=== PATIENT | female | born 1945 | race Caucasian/White ===

== ENCOUNTER 2017-09-16 01:13 | Emergency (ER) | payer BC ==
[~2017-09-16] VITALS: Ht 167.6 cm; Wt 88.0 kg
[2017-09-16 01:20] VITALS: BP 149/74; PULSE 64; RESP 18; TEMP 98.1; O2SAT 98
[2017-09-16] MEDS ORDERED: LACT1CAP19 (02:32)
[2017-09-16] MEDS ORDERED: SYNT88TA PO (02:32)
[2017-09-16] MEDS ORDERED: COUM5TAB PO (02:32)
--- NOTE | 2017-09-16 03:03 | PD ---
HPI Chief Complaint: Fall Time Seen by Provider: 02:16 Travel History International Travel<30 days: No Contact w/Intl Traveler<30days: No Traveled to known affect area: No History of Present Illness HPI The patient is a 72 year old female who presents to the [facility] emergency department with a history of unloading cement blocks from her car and then she turned and tripped over one on the ground at 1PM yesterday. She landed on her right knee, right elbow, and hit the right side of her head. She denies having any LOC. She reports that she went to lie down afterwards. She awoke around dusk with increased pain in the right arm. 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 She is visiting from [place] and is a snowbird. She is chronically anticoagulated on Coumadin. She last had her INR checked in May 2017. The patient reports that she has a mild abrasion to the right knee. She reports that she has been able to weight-bear without any pain. The patient reports that her right elbow has decreased range of motion and pain along the radial aspect with swelling. She denies having any numbness or tingling to her hand. She denies having any loss of range of motion of her fingers or her wrist. The patient denies having any pain in her shoulder. The patient reports that she did develop some swelling and an area of ecchymosis around the right eye, baptist area. She denies having any vision changes. She denies having any neck pain, paresthesias, or weakness to her extremities. On review of systems otherwise, she denies having any known recent fevers, cough or congestion, neck pain, chest pain, shortness of breath, abdominal pain, vomiting, urinary symptoms, or neurologic symptoms. The patient reports having a chronic history of diarrhea intermittently related to irritable bowel syndrome. [facility] Past Medical History Narrative Medical The patient's past medical history is significant for DVT, PE- she is anticoagulated on Coumadin, history of hypothyroid disorder, history of irritable bowel syndrome. Diminished Hearing: No Deep Vein Thrombosis: Yes (clotting disorder) Gastrointestinal Disorders: Yes (IBS) Respiratory: Yes (PE x1) Thyroid Disease: Yes (hypothyroidism) Tetanus Vaccination: > 5 Years Influenza Vaccination: No ?: Not LMP: menapause Past Surgical History Surgical History: No Previous Surgery Social History Alcohol Use: No Tobacco Use: No Substance Use: No Allergies-Medications (Allergen,Severity, Reaction): Coded Allergies: adhesive (Verified Allergy, Severe, 09/16/17) rash Reported Meds & Prescriptions Reported Meds & Active Scripts Active Reported Probiotic (Lactobacillus Combination No.4) 3 Billion Cell Capsule Synthroid (Levothyroxine Sodium) 88 Mcg Tab 88 Mcg PO DAILY Coumadin (Warfarin) 5 Mg Tab 5 Mg PO DAILY Review of Systems Except as stated in HPI: all other systems reviewed are Neg General / Constitutional: No: Fever Eyes: No: Visual changes HENT: Positive: Headaches, No: Neck Stiffness, Neck Pain Cardiovascular: No: Chest Pain or Discomfort Respiratory: No: Shortness of Breath Gastrointestinal: Positive: Diarrhea, No: Nausea, Vomiting, Abdominal Pain Genitourinary: No: Dysuria Musculoskeletal: Positive: Myalgias, Arthralgias, Limited ROM, Edema, Pain Skin: No Rash Neurologic: No: Weakness, Focal Abnormalities, Change in Mentation, Slurred Speech, Sensory Disturbance Psychiatric: No: Depression Endocrine: No: Polydipsia Hematologic/Lymphatic: No: Easy Bruising Physical Exam Narrative General: The patient is a well-developed well-nourished female in no acute distress. Head and Neck exam: Head is normocephalic, with evidence of trauma to the right side of the baptist, right outer edge of her right eye. There is ecchymosis. There is no tenderness on palpation. No increased facial bone motility or tenderness on palpation of her facial bones and orbital ridges. Eyes: EOMI, pupils are equal round and reactive to light. Nose: Midline septum with pink mucous membranes Mouth: Dentition unremarkable. Moist mucus membranes. Posterior oropharynx is not erythematous. No tonsillar hypertrophy. Uvula midline. Airway patent. Neck: No palpable lymphadenopathy. No nuchal rigidity. No thyromegaly. Cardiovascular: Regular rate and rhythm without murmurs, gallops, or rubs. No pulse deficit to the extremities on simultaneous auscultation and palpation of her radial artery. Lungs: Clear to auscultation bilaterally. No wheezes, rhonchi, or rales. Abdomen: Soft, without tenderness to palpation in all 4 quadrants of the abdomen. No guarding, rebound, or rigidity. Normal bowel sounds are audible. No tenderness on palpation of McBurney's point. Negative Barrera sign Extremities: No clubbing, cyanosis, or edema. 2+ pulses in all 4 extremities. The area of interest is the right knee and right elbow. The patient's right elbow has decreased range of motion. The patient holds her right elbow flexed and over her abdomen. The patient reports having severe pain with any attempts at extension of her right elbow. The patient reports that the pain is worse on palpation along the proximal aspect of the radius. The patient has full range of motion of her wrist, hand, and fingers. The patient has intact sensation over all fingers. She has less than 3 second capillary refill. The patient has soft compartments. On examination of the right knee, the patient is noted to have along the anterior aspect of the lateral aspect of the right knee a small abrasion that is superficial. The patient has no ligament laxity. No crepitus or step-off. The patient has no pain with range of motion, weightbearing, or walking. Back: No spinous process tenderness to palpation. No costovertebral angle tenderness to palpation. Neurologic Exam: Cranial nerves 2-12 were intact on exam. Strength is 5/5 in all 4 extremities. No sensory deficits noted. Skin Exam: No rash noted. Intact skin that is warm and dry. Data Data Last Documented VS Vital Signs Date Time Temp Pulse Resp B/P (MAP) Pulse Ox O2 Delivery O2 Flow Rate FiO2 09/16/17 01:20 98.1 64 18 149/74 (99) 98 Orders Orders Complete Blood Count With Diff (09/16/17 02:49) Basic Metabolic Panel (Bmp) (09/16/17 02:49) Prothrombin Time / Inr (Pt) (09/16/17 02:49) Act Partial Throm Time (Ptt) (09/16/17 02:49) Ct Brain W/O Iv Contrast(Rout) (09/16/17 02:49) Ct Cerv Spine W/O Contrast (09/16/17 ) Iv Access Insert/Monitor (09/16/17 02:49) Ecg Monitoring (09/16/17 02:49) Oximetry (09/16/17 02:49) Elbow, Complete (4 Vws) (09/16/17 03:04) Ice/Cold Pack (09/16/17 03:04) Splint Or Brace Apply/Monitor (09/16/17 04:07) Acetamin-Hydrocod 325-5 Mg ([place] 5-325 (09/16/17 05:00) Labs Laboratory Tests Test 09/16/17 03:15 White Blood Count 9.4 TH/MM3 Red Blood Count 4.93 MIL/MM3 Hemoglobin 14.4 GM/DL Hematocrit 43.2 % Mean Corpuscular Volume 87.6 FL Mean Corpuscular Hemoglobin 29.3 PG Mean Corpuscular Hemoglobin Concent 33.5 % Red Cell Distribution Width 13.9 % Platelet Count 215 TH/MM3 Mean Platelet Volume 8.3 FL Neutrophils (%) (Auto) 65.9 % Lymphocytes (%) (Auto) 19.9 % Monocytes (%) (Auto) 11.6 % Eosinophils (%) (Auto) 2.0 % Basophils (%) (Auto) 0.6 % Neutrophils # (Auto) 6.2 TH/MM3 Lymphocytes # (Auto) 1.9 TH/MM3 Monocytes # (Auto) 1.1 TH/MM3 Eosinophils # (Auto) 0.2 TH/MM3 Basophils # (Auto) 0.1 TH/MM3 CBC Comment DIFF FINAL Differential Comment Prothrombin Time 36.6 SEC Prothromb Time International Ratio 3.6 RATIO Activated Partial Thromboplast Time 46.3 SEC Blood Urea Nitrogen 17 MG/DL Creatinine 0.92 MG/DL Random Glucose 89 MG/DL Calcium Level 9.0 MG/DL Sodium Level 141 MEQ/L Potassium Level 4.0 MEQ/L Chloride Level 107 MEQ/L Carbon Dioxide Level 27.8 MEQ/L Anion Gap 6 MEQ/L Estimat Glomerular Filtration Rate 60 ML/MIN MDM Medical Decision Making Medical Screen Exam Complete: Yes Emergency Medical Condition: Yes Medical Record Reviewed: Yes Differential Diagnosis Intracranial hemorrhage, versus cervical spine injury, versus right elbow fracture, versus dislocation, versus contusions and abrasion Narrative Course During the course of the patient's emergency department visit, the patient's history, examination, and differential diagnosis were reviewed with the patient. The patient was placed on a front desk monitor with oximetry and frequent blood pressure monitoring. The patient had IV access obtained and blood work sent for analysis. The patient was initially provided hydrocodone for pain The patient's laboratory studies were reviewed and remarkable for a white count of 9.4, hemoglobin 14.4, platelets 215 with 11.6 monos, basic metabolic profile is within normal limits, PT 36.6, INR 3.6, PTT 46.3. The patient is instructed to hold her Coumadin for 2 days and recheck her INR on Sunday. The patient will likely be started back on a lower dose of her Coumadin. The patient is given information regarding the [facility] for follow-up for her primary care while she is local. Radiology studies were reviewed and remarkable for a CT scan of the brain that showed no acute abnormality, CT scan of the C-spine showed moderate degenerative disc disease, no other acute abnormality, x-ray of the right elbow shows according to the reading radiologist, Dr. Gustafson a mildly displaced radial head fracture with questionable evulsion fracture of the lateral epicondyle, positive joint effusion. I spoke to Dr. Frye regarding this patient's case at approximately 4:48 AM. The patient's case including history, pertinent physical examination findings, and laboratory studies were discussed with . He did review the patient' s imaging and reported that the patient's fracture was actually nondisplaced. He explained that the patient could follow-up as an outpatient and would likely not require surgical intervention. The patient was placed in a long posterior arm splint. The patient is resting comfortably and feels better, is alert and in no distress. The patient's results and examination findings were discussed with the patient. The repeat examination is unremarkable and benign. The history, exam, diagnostic testing, and current condition do not suggest any significant pathology to warrant further testing, continued ED treatment, admission, or surgical evaluation at this point. The vital signs have been stable. The patient does not have uncontrollable pain, intractable vomiting, or other significant symptoms. The patient's condition is stable and appropriate for discharge. The patient will pursue further outpatient evaluation with a primary care physician or other designated or consulting physician as indicated in the discharge instructions. The patient expressed understanding and was agreeable with this plan. Diagnosis Primary Impression: Radial head fracture, closed Qualified Codes: S52.121A - Displaced fracture of head of right radius, initial encounter for closed fracture Additional Impression: Elevated INR Referrals: Brant rFye MD call for appointment [facility] 2 days Patient Instructions: Elbow Fracture (ED), Elevated INR (ED), General Instructions Additional Instructions: The patient is instructed to hold her Coumadin for 2 days and recheck her INR on Sunday. The patient will likely be started back on a lower dose of her Coumadin. The patient is given information regarding the [facility] for follow-up for her primary care while she is local. Med/Other Pt SpecificInfo: Prescription(s) given Scripts Hydrocodone-Acetaminophen (Hydrocodone-Acetaminophen) 5-325 mg Tab 1 TAB PO Q6H Y for PAIN, #12 TAB 0 Refills Prov: Rosio Carlson MD 09/16/17 Disposition: 01 DISCHARGE HOME Condition: Stable Rosio Carlson MD Sep 16, 2017 03:03
[2017-09-16 03:29] LABS: AUTOMATED NEUTROPHIL # 6.2 TH/MM3 (1.8-7.7); BASOPHIL # 0.1 TH/MM3 (0-0.2); BASOPHIL % 0.6 % (0.0-2.0); EOSINOPHIL # 0.2 TH/MM3 (0-0.4); HEMATOCRIT 43.2 % (35.0-46.0); HEMOGLOBIN 14.4 GM/DL (11.6-15.3); LYMPH % 19.9 % (9.0-44.0); LYMPHOCYTE # 1.9 TH/MM3 (1.0-4.8); MEAN CELL VOLUME 87.6 FL (80.0-100.0); MEAN CORPUSCULAR HEMOGLOBIN 29.3 PG (27.0-34.0); MEAN CORPUSCULAR HGB CONC 33.5 % (32.0-36.0); MEAN PLATELET VOLUME 8.3 FL (7.0-11.0); MONO % 11.6 % (0.0-8.0); MONOCYTE # 1.1 TH/MM3 (0-0.9); NEUT % 65.9 % (16.0-70.0); PLATELET COUNT 215 TH/MM3 (150-450); RED BLOOD COUNT 4.93 MIL/MM3 (4.00-5.30); RED CELL DISTRIBUTION WIDTH 13.9 % (11.6-17.2); WHITE BLOOD COUNT 9.4 TH/MM3 (4.0-11.0)
--- NOTE | 2017-09-16 03:38 | RADRPT ---
EXAM DATE/TIME: 09/16/2017 03:18 [facility] COMPARISON: No previous studies available for comparison. INDICATIONS : Trauma. Fell and hit right side of head and face. RADIATION DOSE: 32.14 CTDIvol (mGy) MEDICAL HISTORY : Deep venous thrombosis. SURGICAL HISTORY : None. ENCOUNTER: Initial ACUITY: 1 day PAIN SCALE: 1/10 LOCATION: Right cranial TECHNIQUE: Multiple contiguous axial images were obtained of the head. Using automated exposure control and adj ustment of the mA and/or kV according to patient size, radiation dose was kept as low as reasonably a chievable to obtain optimal diagnostic quality images. DICOM format image data is available electro nically for review and comparison. FINDINGS: CEREBRUM: The ventricles are normal for age. No evidence of midline shift, mass lesion, hemorrhage or acute in farction. No extra-axial fluid collections are seen. POSTERIOR FOSSA: The cerebellum and brainstem are intact. The 4th ventricle is midline. The cerebellopontine angle i s unremarkable. EXTRACRANIAL: The visualized portion of the orbits is intact. SKULL: The calvaria is intact. No evidence of skull fracture. CONCLUSION: Normal examination for a patient of this age. Simba Gustafson MD on September 16, 2017 at 3:35 Board Certified Radiologist. This report was verified electronically.
[2017-09-16 03:40] LABS: INTERNATIONAL NORMALIZED RATIO 3.6 RATIO; PROTHROMBIN TIME - PATIENT 36.6 SEC (9.8-11.6)
--- NOTE | 2017-09-16 03:50 | RADRPT ---
EXAM DATE/TIME: 09/16/2017 03:18 [facility] COMPARISON: No previous studies available for comparison. INDICATIONS : Trauma. Fell and hit right side of head. RADIATION DOSE: 19.73 CTDIvol (mGy) MEDICAL HISTORY : Deep venous thrombosis. SURGICAL HISTORY : None. ENCOUNTER: Initial ACUITY: 1 day PAIN SCALE: 1/10 LOCATION: neck TECHNIQUE: Volumetric scanning of the cervical spine was performed. Multiplanar reconstructions in the sagittal, coronal and oblique axial planes were performed. Using automated exposure control and adjustment o f the mA and/or kV according to patient size, radiation dose was kept as low as reasonably achievable to obtain optimal diagnostic quality images. DICOM format image data is available electronically f or review and comparison. FINDINGS: No acute fracture or subluxation. No prevertebral soft tissue swelling. Moderate degenerative disc di sease and facet arthropathy. Foraminal stenosis present bilaterally at C5-6-7. CONCLUSION: 1. Moderate degenerative disc disease. No acute bony abnormality. Simba Gustafson MD on September 16, 2017 at 3:42 Board Certified Radiologist. This report was verified electronically.
[2017-09-16 04:05] LABS: BICARBONATE 27.8 MEQ/L (21.0-32.0); CREATININE 0.92 MG/DL (0.50-1.00)
--- NOTE | 2017-09-16 04:08 | RADRPT ---
EXAM DATE/TIME: 09/16/2017 03:28 [facility] COMPARISON: No previous studies available for comparison. INDICATIONS : Trauma. MEDICAL HISTORY : Deep vein thrombosis. SURGICAL HISTORY : None. ENCOUNTER: Initial ACUITY: 1 day PAIN SCORE: 10/10 LOCATION: Right Elbow. FINDINGS: There is a mildly displaced radial head fracture. Positive joint effusion. Ossifications adjacent to the lateral epicondyles possibly with a small avulsion injury. CONCLUSION: 1. Mildly displaced radial head fracture. Questionable avulsion fracture lateral epicondyle. Positive joint effusion. Simba Gustafson MD on September 16, 2017 at 4:05 Board Certified Radiologist. This report was verified electronically.
[2017-09-16] MEDS ORDERED: ACETAMINOPHEN/HYDROcodone 325 MG/5 MG TAB PO ONE (05:00)
[2017-09-16] MEDS ORDERED: HYDR-3516 PO (05:15)
[2017-09-16 06:11] VITALS: BP 140/72
== END 2017-09-16 06:13 | disposition home or self-care (01) ==
LOC: NEPC 01:13
DX: S52.121A Displaced fracture of head of right radius, initial encounter for closed fracture (principal); S80.211A Abrasion, right knee, initial encounter; S00.11XA Contusion of right eyelid and periocular area, initial encounter; R79.1 Abnormal coagulation profile; M50.322 Other cervical disc degeneration at C5-C6 level; M50.323 Other cervical disc degeneration at C6-C7 level; R19.7 Diarrhea, unspecified; E03.9 Hypothyroidism, unspecified; W01.0XXA Fall on same level from slipping, tripping and stumbling without subsequent striking against object, initial encounter
CPT/HCPCS: 29105; 70450; 72125; 73080; 80048; 85025; 85610; 85730

== ENCOUNTER 2017-09-18 12:51 | Emergency (ER) | payer SELFPAY ==
[~2017-09-18] VITALS: Ht 167.6 cm; Wt 86.4 kg
[~2017-09-18 12:51] MED LIST: COUM5TAB PO; HYDR-3516 PO; LACT1CAP19; SYNT88TA PO
[2017-09-18 12:55] VITALS: BP 146/73; PULSE 74; RESP 18; TEMP 98.5; O2SAT 99
--- NOTE | 2017-09-18 14:22 | PD ---
HPI Chief Complaint: Injury Time Seen by Provider: 14:10 Travel History International Travel<30 days: No Contact w/Intl Traveler<30days: No Traveled to known affect area: No History of Present Illness HPI 72-year-old female presents to the emergency department requesting for her right upper arm splint to be redone because it was too tight and causing swelling and numbness in her right hand. She was seen here on September 16 and diagnosed with a radial head fracture. She did loosen the splint around her hand and wrist. Denies paresthesias, loss of sensation at this time. Denies swelling of the hand at this time. Denies fever, vomiting. Has a follow-up appointment with orthopedic on Sunday. Does not have a primary care provider in this area, as she has a snowbird, and her primary care is back home. Takes Coumadin for history of blood clots. Allergies to adhesives. Has no other medical complaints. No other modifying factors or associated signs and symptoms. PFSH Past Medical History Diminished Hearing: No Deep Vein Thrombosis: Yes (clotting disorder) Gastrointestinal Disorders: Yes (IBS) Respiratory: Yes (PE x1) Thyroid Disease: Yes (hypothyroidism) Social History Alcohol Use: No Tobacco Use: No Substance Use: No Allergies-Medications (Allergen,Severity, Reaction): Coded Allergies: adhesive (Verified Allergy, Severe, 09/18/17) rash Reported Meds & Prescriptions Reported Meds & Active Scripts Active Hydrocodone-Acetaminophen 5-325 mg Tab 1 Tab PO Q6H PRN Reported Probiotic (Lactobacillus Combination No.4) 3 Billion Cell Capsule Synthroid (Levothyroxine Sodium) 88 Mcg Tab 88 Mcg PO DAILY Coumadin (Warfarin) 5 Mg Tab 5 Mg PO DAILY Review of Systems Except as stated in HPI: all other systems reviewed are Neg Physical Exam Narrative GENERAL: Well-nourished, well-developed female patient, in no acute distress SKIN: Warm and dry. HEAD: Atraumatic. Normocephalic. EYES: Pupils equal and round. No scleral icterus. No injection or drainage. Right raccoon eye noted. ENT: Mucosa pink and moist. Airway patent. NECK: Trachea midline. CARDIOVASCULAR: Regular rate. RESPIRATORY: No accessory muscle use. GASTROINTESTINAL: Rounded. MUSCULOSKELETAL: Right upper extremity in soft splint; loosened around the hand and wrist; 2+ radial pulse; fingers with full range of motion and sensory intact and are pink and warm. No obvious deformities. No clubbing. No cyanosis. No edema. NEUROLOGICAL: Awake and alert. Oriented 3. No obvious cranial nerve deficits. Motor grossly within normal limits. Normal speech. PSYCHIATRIC: Appropriate mood and affect; insight and judgment normal. Data Data Last Documented VS Vital Signs Date Time Temp Pulse Resp B/P (MAP) Pulse Ox O2 Delivery O2 Flow Rate FiO2 09/18/17 12:55 98.5 74 18 146/73 (97) 99 MDM Medical Decision Making Medical Screen Exam Complete: Yes Emergency Medical Condition: Yes Medical Record Reviewed: Yes Differential Diagnosis Splint recheck, splint change, splint care Narrative Course 72-year-old female presents for splint change of her right upper extremity. She was diagnosed with radial head fracture on September 16. She loosen the splint at the wrist and hand. [employer] paged and splint will be replaced. She has follow-up on Sunday with orthopedics. Instructed patient to follow-up at scheduled appointment. Instructed patient to follow up with primary care provider. Patient verbalizes understanding and agreement with treatment plan. Patient is medically cleared and stable for discharge. Discussed reasons to return to the emergency department. Patient agrees with treatment plan. The patients vital signs are stable and the patient is stable for outpatient follow- up and treatment. Patient discharged home, stable and in no acute distress. Diagnosis Primary Impression: Aftercare for cast or splint check or change Referrals: Orthopaedic Surgeon Primary Care Physician Patient Instructions: General Instructions, Splint Care (ED) Additional Instructions: Tylenol or ibuprofen as directed and as needed to reduce pain Rest, ice, compress, and elevate extremity to decrease pain and inflammation Arm sling for support Splint for support; do not remove splint until you follow-up with orthopedic Avoid aggravating activity; increase activity as tolerated Follow-up with primary care provider Follow-up with orthopedics as scheduled appointment Return to the emergency department immediately with worsening symptoms Med/Other Pt SpecificInfo: No Change to Meds, No Meds Exist/No RX given Disposition: 01 DISCHARGE HOME Condition: Stable Dee Orourke Sep 18, 2017 14:22
== END 2017-09-18 15:22 | disposition home or self-care (01) ==
LOC: NEPK 12:51
DX: Z46.89 Encounter for fitting and adjustment of other specified devices (principal); S52.121A Displaced fracture of head of right radius, initial encounter for closed fracture; E03.9 Hypothyroidism, unspecified; K58.9 Irritable bowel syndrome, unspecified; Z86.718 Personal history of other venous thrombosis and embolism; Z79.01 Long term (current) use of anticoagulants
CPT/HCPCS: 29105